=== PATIENT | female | born 2000 | race Caucasian/White ===

== ENCOUNTER 2023-01-13 12:25 | Outpatient (CLI) | payer OTHER | END 2023-01-13 13:24 | disposition home or self-care (01) | LOC: NST 12:25 | PROVIDERS: ATTEND Obstetrics & Gynecology Maternal & Fetal Medicine | DX: Z34.83 Encounter for supervision of other normal pregnancy, third trimester (principal) ==

== ENCOUNTER 2023-01-14 15:30 | Inpatient (IN) | payer OTHER ==
[~2023-01-14] VITALS: Ht 154.9 cm; Wt 2.7 kg
[2023-01-21] MEDS ORDERED: PRENATAL TABLE1 EAC1 (17:43)
[2023-01-21] MEDS ORDERED: PEPCID AC20 MG (17:43)
[2023-01-26] MEDS ORDERED: OXYC1TAB9 PO (08:29)
== END 2023-01-26 14:54 | disposition home or self-care (01) | DRG 788 ==
LOC: EDUNIT# 15:30 → LDR 01-21 15:58 → OB/GYN 01-22 13:17 → LDR 01-22 15:30 → OB/GYN 01-26 14:54
PROVIDERS: ADMIT Obstetrics & Gynecology; ATTEND Obstetrics & Gynecology
PROC: 4A1HXCZ Monitoring of Products of Conception, Cardiac Rate, External Approach (ICD-10-PCS; 2023-01-21)
PROC: 3E0P7VZ Introduction of Hormone into Female Reproductive, Via Natural or Artificial Opening (ICD-10-PCS; 2023-01-21)
PROC: 3E033VJ Introduction of Other Hormone into Peripheral Vein, Percutaneous Approach (ICD-10-PCS; 2023-01-22)
PROC: 10D00Z1 Extraction of Products of Conception, Low, Open Approach (ICD-10-PCS; principal; 2023-01-22 12:00)
DX: O33.8 Maternal care for disproportion of other origin (principal); Z3A.40 40 weeks gestation of pregnancy; Z37.0 Single live birth; Z20.822 Contact with and (suspected) exposure to COVID-19

== ENCOUNTER 2023-01-20 08:42 | Outpatient (CLI) | payer OTHER ==
[2023-01-21] MEDS ORDERED: PRENATAL TABLE1 EAC1 (17:43)
[2023-01-21] MEDS ORDERED: PEPCID AC20 MG (17:43)
== END 2023-01-20 09:28 | disposition home or self-care (01) ==
LOC: NST 08:42
PROVIDERS: ATTEND Obstetrics & Gynecology Maternal & Fetal Medicine
DX: Z34.83 Encounter for supervision of other normal pregnancy, third trimester (principal)